=== PATIENT | male | born 1990 | race African-American/Black ===

== ENCOUNTER 2016-12-13 00:03 | Emergency (ER) | payer MEDICAID ==
[~2016-12-13] VITALS: Ht 180.3 cm; Wt 181.0 kg
[2016-12-13 00:55] LABS: Basophils # (auto) 0.1 uL; Basophils % (auto) 1.7 % (0.0-2.0); Eosinophils # (auto) 0.2 uL; Eosinophils % (auto) 2.6 % (0.0-7.0); Hematocrit 45.7 % (41.0-53.0); Hemoglobin 15.3 g/dL (13.5-17.5); Lymphocytes % (auto) 38.9 % (10.0-50.0); Mean Corpuscular Hemoglobin 28.3 pg (28.0-32.0); Mean Corpuscular Hgb Conc. 33.6 g/dL (32.0-36.0); Mean Corpuscular Volume 84.2 fL (80.0-100.0); Mean Platelet Volume 8.7 fL (7.4-10.4); Monocytes # (auto) 0.4 uL; Monocytes % (auto) 5.7 % (0.0-12.0); Neutrophils # (auto) 4.1 uL; Neutrophils % (auto) 51.1 % (37.0-80.0); Platelet Count (auto) 255 10^3/uL (140-450); Red Cell Distribution Width 13.2 % (11.6-16.0); White Blood Cell 7.8 10^3/uL (4.4-10.8)
[2016-12-13 01:08] LABS: Albumin 3.8 g/dL (3.4-5.0); Anion Gap 6 (5-15); Calcium 9.3 mg/dL (8.5-10.1); Carbon Dioxide 30 mmol/L (21-32); Chloride 105 mmol/L (98-107); Glucose 108 mg/dL (74-106); Potassium 4.2 mmol/L (3.5-5.1); Sodium 141 mmol/L (136-145)
[2016-12-13 01:09] LABS: Urine RBC None Seen /hpf (0 - 3)
[2016-12-13 01:18] LABS: Urine Bilirubin Negative (Negative); Urine Blood Negative /uL (Negative); Urine Color Yellow (Yellow); Urine Glucose Normal (Normal); Urine Ketone Negative (Negative); Urine Nitrite Negative (Negative); Urine Squamous Epithelial Cell FEW /hpf (<5); Urine Urobilinogen Normal (Negative); Urine pH 5.5 (5.0-8.0)
[2016-12-13 01:21] LABS: Alkaline Phosphatase 119 U/L (45-117); Aspartate Aminotransferase 27 U/L (15-37); BUN/Creatinine Ratio 12.5; Bilirubin, Total 0.3 mg/dL (0.2-1.0); Blood Urea Nitrogen 11 mg/dL (7-18); GFR African American 137 mL/min; GFR Non-African American 113 mL/min; Total Protein 8.4 g/dL (6.4-8.2)
[2016-12-13] MEDS ORDERED: ASPirin 81 mg TAB PO ONE (02:45)
[2016-12-13] MEDS ORDERED: ASPirin 81 mg TAB ONE (07:23)
[2016-12-13] MEDS ORDERED: LORazepam 2MG/ML-1ML VIAL IV ONE (07:45)
[2016-12-13] MEDS ORDERED: SODIUM CHLORIDE 0.9% 1,000 ML IV SCH (08:44)
[2016-12-13] MEDS ORDERED: ACETAMINOPHEN 500 MG TAB PO PRN (08:45)
[2016-12-13] MEDS ORDERED: MORPHINE SULF INJ 2 MG/ML SYRINGE 1ML IV PRN ×2 (08:45)
[2016-12-13] MEDS ORDERED: HYDROcodone-ACET 5/325MG TAB PO PRN (08:45)
[2016-12-13] MEDS ORDERED: TEMAZEPAM 15 MG CAP PO PRN (08:45)
[2016-12-13] MEDS ORDERED: LACTULOSE 20Gm/30ML SOLN PO PRN (08:45)
[2016-12-13] MEDS ORDERED: LORazepam 0.5 MG TAB PO PRN (08:45)
[2016-12-13] MEDS ORDERED: NITROGLYCERIN 0.4 MG SL TAB SL PRN (08:45)
[2016-12-13] MEDS ORDERED: PROMETHAZINE HCL 25 MG/ML 1ML IV PRN (08:45)
[2016-12-13] MEDS ORDERED: FAMOTIDINE 20 MG TAB PO SCH (10:00)
[2016-12-13] MEDS ORDERED: ENALAPRIL MALEATE 10 MG TAB PO SCH (10:00)
[2016-12-13] MEDS ORDERED: METOPROLOL TARTRATE 25 MG TAB PO SCH (10:00)
[2016-12-13] MEDS ORDERED: NITROGLYCERIN 0.2MG/HR TOPICAL PATCH TD SCH (10:00)
[2016-12-13] MEDS ORDERED: ASPirin 81 mg TAB PO SCH (10:00)
[2016-12-13] MEDS ORDERED: ENOXAPARIN SOD 40 MG/0.4 ML SYRINGE SC SCH (10:00)
[2016-12-13 12:36] VITALS: BP 145/87
== END 2016-12-13 12:35 | disposition home or self-care (01) ==
LOC: ER 00:03
DX: R07.9 Chest pain, unspecified (principal); E66.01 Morbid (severe) obesity due to excess calories; Z68.43 Body mass index [BMI] 50.0-59.9, adult; Z91.013 Allergy to seafood
CPT/HCPCS: 36415; 71010; 80053; 80307; 81001; 82550; 84484; 85025; 85379; 85652; 86141; 93005; 96360; 96361; 96372; 99285; J1650; J7030

== ENCOUNTER 2018-12-09 20:18 | Emergency (ER) | payer SELFPAY ==
[~2018-12-09] VITALS: Ht 180.3 cm; Wt 163.3 kg
[2018-12-09 20:24] VITALS: BP 124/78
[2018-12-09] MEDS ORDERED: TETANUS-DIPTH-ACEL PERTUSSIS 0.5ML SYRG IM ONE (23:15)
== END 2018-12-09 23:33 | disposition home or self-care (01) ==
LOC: ER 20:33
DX: S61.217A Laceration without foreign body of left little finger without damage to nail, initial encounter (principal); Z91.013 Allergy to seafood; W26.0XXA Contact with knife, initial encounter; Y93.89 Activity, other specified; Y99.8 Other external cause status; Y92.89 Other specified places as the place of occurrence of the external cause
CPT/HCPCS: 12001; 90471; 90715

== ENCOUNTER 2019-12-29 20:18 | Emergency (ER) | payer SELFPAY ==
[~2019-12-29] VITALS: Ht 180.3 cm; Wt 181.4 kg
[2019-12-29 21:22] VITALS: BP 140/95
== END 2019-12-29 23:11 | disposition home or self-care (01) ==
LOC: ER 20:18
DX: S21.011A Laceration without foreign body of right breast, initial encounter (principal); S21.111A Laceration without foreign body of right front wall of thorax without penetration into thoracic cavity, initial encounter; W23.0XXA Caught, crushed, jammed, or pinched between moving objects, initial encounter; Y93.89 Activity, other specified; Y92.89 Other specified places as the place of occurrence of the external cause; Y99.8 Other external cause status
CPT/HCPCS: 12001; 12011

== ENCOUNTER 2020-01-08 09:30 | Emergency (ER) | payer SELFPAY ==
[~2020-01-08] VITALS: Ht 180.3 cm; Wt 178.7 kg
[2020-01-08 09:40] VITALS: BP 154/98
== END 2020-01-08 10:09 | disposition home or self-care (01) ==
LOC: ER 09:30
DX: S21.011D Laceration without foreign body of right breast, subsequent encounter (principal); X58.XXXD Exposure to other specified factors, subsequent encounter